=== PATIENT | male | born 1965 | race Caucasian/White ===

== ENCOUNTER 2016-10-17 11:45 | Emergency (ER) | payer OTHER | END 2016-10-18 07:50 | disposition home or self-care (01) | LOC: EDSTATUS 11:45 → ER 11:46 | DX: M60.232 Foreign body granuloma of soft tissue, not elsewhere classified, left forearm (principal); Z18.9 Retained foreign body fragments, unspecified material; E11.9 Type 2 diabetes mellitus without complications; E03.9 Hypothyroidism, unspecified; Z79.84 Long term (current) use of oral hypoglycemic drugs | CPT/HCPCS: 10120; 36415; 73090; 82947; 84443; 99070; 99283-25 ==